=== PATIENT | female | born 1965 | race Hispanic/Latino ===

== ENCOUNTER 2018-07-24 09:53 | Inpatient (IN) | payer SELFPAY ==
[~2018-07-24] VITALS: Ht 152.4 cm; Wt 86.6 kg
[2018-07-24] MEDS ORDERED: METFORMIN500 MG PO (10:03)
--- NOTE | 2018-07-24 10:05 | NUR ---
PT TO ROOM FOR EXAM. PT STATES SHE HAS NOT TAKEN ANY OF HER METFORMIN FOR OVER A WEEK, AND DOES NOT USE INSULIN ON REGULAR BASIS. PT CAN NOT TELL ME WHAT KIND OF INSULIN SHE USES.
[2018-07-24] MEDS ORDERED: LANTUS100 UNIT/M SC (10:18)
--- NOTE | 2018-07-24 10:18 | NUR ---
DURING EXAMINATION WITH DR. BETHEA, NOTICEABLE REDNESS AND SWELLING TO OUTER VAGINAL AREA WITH PAIN WITH PALPITATION. VERY STRONG ODOR AND DISCHARGE. PT ALSO STATES HAS LEFT SIDE FLANK PAIN ON PALPATING. PT APPEARS TO BE NON COMPLIANT WITH DIABETIC MEDICATIONS, DOES NOT DO ACCUCHECKS.
--- NOTE | 2018-07-24 10:20 | NUR ---
STATES SHE HAS REMEMBERED THAT SHE TAKES LANTUS 60 UNITS TWICE A DAY, MEDICATION RECONCILLATION UPDATED.
[2018-07-24 10:52] LABS: HEMATOCRIT 44.6 % (37.0-47.0); HEMOGLOBIN 15.5 g/dl (12.0-16.0); IMMATURE GRANULOCYTES 0.5 % (0.0-5.0); MEAN CELL VOLUME 85.9 fL CALC (80.0-100.0); MEAN CORPUSCULAR HGB 29.9 pG CALC (26.0-32.0); MEAN CORPUSCULAR HGB CONC 34.8 g/L CALC (32.0-36.0); NEUT# 8.53 thou/uL (2.00-7.15); RED BLOOD COUNT 5.19 mill/uL (4.20-5.60); RED CELL DISTRI WIDTH 12.3 % (11.5-15.5)
[2018-07-24 10:53] LABS: URINE BILIRUBIN - DIPSTICK NEGATIVE (NEGATIVE); URINE BLOOD DIPSTICK MODERATE (NEGATIVE); URINE COLOR YELLOW; URINE GLUCOSE - DIPSTICK >=1000 mg/dL (NEGATIVE); URINE KETONE 40 mg/dL (NEGATIVE); URINE LEUK ESTERASE TRACE (NEGATIVE); URINE NITRITE - DIPSTICK NEGATIVE (Negative); URINE PROTEIN - DIPSTICK 30 mg/dL (NEG-TRACE); URINE SPECIFIC GRAVITY 1.025
[2018-07-24 11:00] LABS: URINE SQUAMOUS EPITHELIAL CELL FEW EPI/hpf (0-FEW); URINE WBC 50-100 WBC/hpf (0-5)
[2018-07-24 11:03] LABS: ALBUMIN 4.7 g/dL (3.2-5.0); ALKALINE PHOSPHATASE 136 u/l (38-126); ANION GAP 15 (6-22 (CALC)); BILIRUBIN, TOTAL 1.6 mg/dL (0.0-1.4); BUN 13 mg/dL (7-17); BUN/CREATININE RATIO 24 (12-20 (CALC)); CARBON DIOXIDE 24 mmol/l (22-30); CHLORIDE 100 mmol/l (95-108); CREATININE 0.5 mg/dL (0.5-1.0); GFR > 60 ML/MIN (>=60 (CALC)); GFR FOR AFR.AMER. > 60 ML/MIN (>=60 (CALC)); LIPASE 55 u/l (23-300); POTASSIUM 3.7 mmol/l (3.5-5.1); SGOT/AST 22 u/l (14-36); SODIUM 135 mmol/l (137-146); TOTAL PROTEIN 8.1 g/dL (6.3-8.2)
--- NOTE | 2018-07-24 11:25 | NUR ---
UNABLE TO USE SPECULUM IN VAGINAL AREA, DR. BETHEA NOTED TO SWOLLEN AND PAINFUL, OBTAINED ORDERED CULTURES, AND MANUAL EXAM PER DR. BETHEA. PT TOLERATED WELL
--- NOTE | 2018-07-24 13:30 | NUR ---
RECEIVED REPORT ON PT. BEDRESTING. AWAITING ADMISSION. N/C AT THIS TIME
--- NOTE | 2018-07-24 14:30 | NUR ---
CALLED TO GIVE REPORT. NURSE TO CALL BACK
--- NOTE | 2018-07-24 14:45 | NUR ---
AMBULATED TO AND FROM BATHROOM. GAIT STEADY.
--- NOTE | 2018-07-24 15:01 | NUR ---
REPORT GIVEN TO NAFISA SIM
[2018-07-24 15:10] VITALS: BP 111/69
--- NOTE | 2018-07-24 15:11 | NUR ---
TO MS VIA W/C
--- NOTE | 2018-07-24 15:30 | NUR ---
PT ARRIVED FLOOR VIA W/C ACCOMPANIED BY ER STAFF; AMBULATE WITH STEADY GAIT TO DIGITAL STANDING SCALE; VITALS OBTAIN; A/O X3: ORIENT TO ROOM AND CALL CLEARY SYSTEM; PT REQUEST SITTING UP IN RECLINER; BSC NEXT TO RECLINER; PT C/O OF BURINING WHEN URINATING AND SITTING DOWN; STATED BURNING STARTED 4 DAYS AGO; WORKS IN A [employer], SORTING CUCUMBERS AND PEPPERS; LAST BM 07/21/18; TWO IV SITE #22G LH, (DISLODGED) REMOVED, CATH INTACT; #20G RAC, NS INFUSING @100CC/HR; SITE APPEARS HEALTHY; VOICE NO CONCERNS; WILL CONTINUE TO MONITOR.
--- NOTE | 2018-07-24 17:10 | NUR ---
TEMP 100.9, MCKENZIE COFFEY AWARE, MEDICATED WITH TYLENOL; ASSISTED BACK TO BED; RESP EVEN AND UNLABORED ON ROOM AIR; IVF INFUSING WITHOUT DIFFICULTY; SITE APPEARS HEALTHY; CALL CLEARY AND BSC IN REACH. WILL CONTINUE TO MONITOR.
--- NOTE | 2018-07-24 18:03 | NUR ---
PT SITTING UP IN BED EATING SUPPER; TEMP 101.5 COLD WASH CLOTH APPLIED TO UNDERARMS; VOICE NO CONCERNS; CALL CLEARY IN REACH.
[2018-07-24 19:56] VITALS: BP 115/67
[2018-07-25 04:45] VITALS: BP 104/58
[2018-07-25 05:51] LABS: CHOLESTEROL HDL RATIO 3.9 (<4.4 (CALC))
--- NOTE | 2018-07-25 07:00 | NUR ---
RECIEVED REPORT FROM HOSPICE CASE MANAGER, ASSUMED PT CARE.
[2018-07-25 07:30] VITALS: BP 94/63
[2018-07-25 07:30] LABS: MEAN CORPUSCULAR HGB 29.6 pG CALC (26.0-32.0); MEAN CORPUSCULAR HGB CONC 33.6 g/L CALC (32.0-36.0); RED BLOOD COUNT 4.26 mill/uL (4.20-5.60); RED CELL DISTRI WIDTH 12.8 % (11.5-15.5)
--- NOTE | 2018-07-25 07:30 | NUR ---
ASSESSMENT COMPLETED, PT AFEBRILE AT THIS TIME. PT CONTINUES TO REPORT DISCOMFORT WITH URINATION, MEDICATED ORDERED. CALL LIGHT IN REACH. WILL MONITOR.
[2018-07-25 07:32] LABS: HEMATOCRIT 37.5 % (37.0-47.0); HEMOGLOBIN 12.6 g/dl (12.0-16.0)
[2018-07-25 07:37] LABS: ANION GAP 10 (6-22 (CALC)); BUN 10 mg/dL (7-17); BUN/CREATININE RATIO 23 (12-20 (CALC)); CARBON DIOXIDE 26 mmol/l (22-30); CHLORIDE 108 mmol/l (95-108); CREATININE 0.4 mg/dL (0.5-1.0); GFR > 60 ML/MIN (>=60 (CALC)); GFR FOR AFR.AMER. > 60 ML/MIN (>=60 (CALC)); POTASSIUM 3.7 mmol/l (3.5-5.1); SODIUM 140 mmol/l (137-146)
--- NOTE | 2018-07-25 10:18 | NUR ---
RECIEVED REPORT FROM SMALL ORDER CUTTER, ASSUMED PT CARE.
--- NOTE | 2018-07-25 11:30 | NUR ---
DIETARY ON UNIT, LUNCH TRAY SET UP.
--- NOTE | 2018-07-25 12:32 | NUR ---
PT ASSISTED TO SHOWER, TOLERATED WELL. REMAINS AFEBRILE. CALL LIGHT IN REACH. WILL MONITOR.
[2018-07-25 15:54] VITALS: BP 94/68
--- NOTE | 2018-07-25 16:15 | NUR ---
PT RESTING IN BED WATCHING TV. AFEBRILE. PT CONTINUES TO REPORT DISCOMFORT WITH URINATION. REMAINS NPO AT THIS TIME. CALL LIGHT IN REACH. WILL MONITOR.
--- NOTE | 2018-07-25 19:00 | NUR ---
RECEIVED REPORT FROM NURSE RODRIGUEZ, PATIENT AWAKE RESTING IN BED, WITH EVEN UNLABORED BREATHING CALL LIGHT AT REACH.
[2018-07-25 19:23] VITALS: BP 104/66
--- NOTE | 2018-07-25 20:00 | NUR ---
PATIENT ALERT AND ORIENTED ABLE TO MAKE NEEDS KNOWN, CONTINENT OF BOWEL AND BLADDER, WITH AN ONGOING IV OF NORMAL SALINE @100CC/HR INFUSING WELL ON RAC, LAST BM 07/24, C/O PAIN AND BURNING DURING URINATION, URINE COLOR ORANGE PATIENT WAS ON PYRIDIUM, ON NPO FOR THE ABDOMINAL ULTASOUND IN AM, C/O OF PAIN PRN LORTAB GIVEN WITH SIPS OF WATER. WILL REEVALUATE.
--- NOTE | 2018-07-25 21:00 | NUR ---
PATIENT STATED RELIEF FROM PAIN, CURRENTLY RESTING IN BED, CALL LIGHT AT REACH.
--- NOTE | 2018-07-25 21:15 | NUR ---
DR. ARGUETA INFORMED OF BS 111MG/DL, AND INFORMED ABOUT PATIENT BEING ON NPO FOR THE ULTRASOUND, ORDERED TO HOLD DUE ROSA VELASQUEZ.
--- NOTE | 2018-07-26 02:04 | NUR ---
PATIENT APPEARS TO BE SLEEPING IN BED, EYES CLOSED CALL LIGHT AT REACH.
--- NOTE | 2018-07-26 04:26 | NUR ---
PATIENTS TEMP 100.1, APPLIED COLD PACK AND WASH CLOTH TO FOREHEAD
[2018-07-26 04:46] VITALS: BP 112/79
[2018-07-26 05:33] LABS: HEMATOCRIT 35.5 % (37.0-47.0); HEMOGLOBIN 11.8 g/dl (12.0-16.0); IMMATURE GRANULOCYTES 0.5 % (0.0-5.0); MEAN CELL VOLUME 88.8 fL CALC (80.0-100.0); MEAN CORPUSCULAR HGB 29.5 pG CALC (26.0-32.0); MEAN CORPUSCULAR HGB CONC 33.2 g/L CALC (32.0-36.0); NEUT# 3.47 thou/uL (2.00-7.15)
--- NOTE | 2018-07-26 05:55 | NUR ---
REPEAT TEMP 99.9F CONTINUE TO DO APPLY WASH CLOTH TO FOREHEAD AND COLD PACKS. NPO STATUS REINFORCED
[2018-07-26 06:04] LABS: BUN 9 mg/dL (7-17); BUN/CREATININE RATIO 24 (12-20 (CALC)); CARBON DIOXIDE 24 mmol/l (22-30); CHLORIDE 109 mmol/l (95-108); CREATININE 0.4 mg/dL (0.5-1.0); GFR > 60 ML/MIN (>=60 (CALC)); GFR FOR AFR.AMER. > 60 ML/MIN (>=60 (CALC)); MAGNESIUM 1.9 mg/dL (1.6-2.3); SODIUM 138 mmol/l (137-146)
[2018-07-26 06:07] LABS: ANION GAP 9 (6-22 (CALC)); POTASSIUM 3.6 mmol/l (3.5-5.1)
[2018-07-26 07:50] VITALS: BP 119/72
--- NOTE | 2018-07-26 08:40 | NUR ---
MEDICATED PT WITH TYLENOL FOR TEMP 101.1. MADE ROOM COOL. ASSESSMENT DONE. PT IS A&O X3. IVF INFUSING WELL. ASSISTED PT TO SIT IN RECLINER. SAFETY PRECAUTIONS REINFROCED AND CALL LIGHT IN REACH.
--- NOTE | 2018-07-26 11:41 | NUR ---
PT IS SITTING IN RECLINER. MEDICATED PT WITH LORTAB FOR PAIN SEE EMAR. PT DENIES ANY OTHER NEEDS. CALL LIGHT IN REACH.
[2018-07-26 12:00] VITALS: BP 98/56
[2018-07-26 16:06] VITALS: BP 121/77
--- NOTE | 2018-07-26 16:35 | NUR ---
BIRDIE CARE DONE. VAGINAL LESIONS NOTED WITH REDNESS AND MD AWARE . COLE WAS PLACE BY BETZAIDA MANRIQUEZ. CALL LIGHT IN REACH.
--- NOTE | 2018-07-26 19:00 | NUR ---
RECEIVED REPORT FROM NURSE ALEXI, PATIENT RESTING IN BED, WITH COLE CATHETER DRAINING FRANCY COLORED URINE. STILL COMPLAINING OF BURNING PAIN ON PERINEAL AREA. WILL MEDICATE.
[2018-07-26 20:18] VITALS: BP 113/68
--- NOTE | 2018-07-26 21:00 | NUR ---
PATIENT SITTING IN BED, WITH AN ONGOING IV OF NORMAL SALINE@ 100CC/HR, INFUSING WELL ON RAC, LAST BM 07/24, WITH COLE CATHETER DRAINING FRANCY COLORED URINE, EVEN UNLABORED BREATHING, PRN LORTAB GIVEN FOR BURNING ON PERINEAL AREA.
--- NOTE | 2018-07-26 22:00 | NUR ---
PERINEAL CARE DONE USING CHLORHEXIDINE SOAP.
--- NOTE | 2018-07-27 | NUR ---
PATIENT RESTING IN BED, EVEN UNLABORED BREATHING CALL LIGHT AT REACH.
--- NOTE | 2018-07-27 04:30 | NUR ---
PATIENT APPEARS TO BE RESTING IN BED WITH EYES CLOSED, NO DISCOMFORTS NOTED AT THIS TIME, CALL LIGHT AT REACH.
[2018-07-27 04:37] VITALS: BP 108/62
[2018-07-27 06:06] LABS: HEMOGLOBIN 11.8 g/dl (12.0-16.0); IMMATURE GRANULOCYTES 0.5 % (0.0-5.0); MEAN CELL VOLUME 88.2 fL CALC (80.0-100.0); MEAN CORPUSCULAR HGB 29.7 pG CALC (26.0-32.0); MEAN CORPUSCULAR HGB CONC 33.7 g/L CALC (32.0-36.0); NEUT# 2.16 thou/uL (2.00-7.15); RED BLOOD COUNT 3.97 mill/uL (4.20-5.60); RED CELL DISTRI WIDTH 12.8 % (11.5-15.5)
[2018-07-27 06:32] LABS: ALKALINE PHOSPHATASE 119 u/l (38-126); ANION GAP 9 (6-22 (CALC)); BUN 7 mg/dL (7-17); BUN/CREATININE RATIO 19 (12-20 (CALC)); CARBON DIOXIDE 25 mmol/l (22-30); CHLORIDE 108 mmol/l (95-108); CREATININE 0.4 mg/dL (0.5-1.0); GFR > 60 ML/MIN (>=60 (CALC)); GFR FOR AFR.AMER. > 60 ML/MIN (>=60 (CALC)); LIPASE 56 u/l (23-300); POTASSIUM 3.5 mmol/l (3.5-5.1); SGOT/AST 22 u/l (14-36); SODIUM 138 mmol/l (137-146)
[2018-07-27 06:33] LABS: ALBUMIN 2.8 g/dL (3.2-5.0); AMYLASE < 30 u/l (30-110); BILIRUBIN, TOTAL 0.6 mg/dL (0.0-1.4); TOTAL PROTEIN 5.4 g/dL (6.3-8.2)
[2018-07-27 08:46] VITALS: BP 109/64
--- NOTE | 2018-07-27 08:47 | NUR ---
PT IS SITTING IN RECLINER ASSESSMENT DONE. MEDICATED PT WITH LORTAB FOR PAIN 10/23 SEE EMAR. RESPS EVEN AND UNLABORED. IVF INFUSING WELL. COLE IS PATENT WITH FRANCY URINE. PT DENIES ANY OTHER NEEDS AT THIS TIME. CALL LIGHT IN REACH.
--- NOTE | 2018-07-27 10:40 | NUR ---
PT TAKING A SHOWER AND CHLORHEXEDINE SOAP SET UP FOR PT TO DO BIRDIE CARE. CALL LIGHT IN REACH.
--- NOTE | 2018-07-27 11:35 | NUR ---
PT EPHRAIM AT BED TO ASSESS PT. PT STATED PAIN IS LESS. CALL LIGHT IN REACH.
--- NOTE | 2018-07-27 12:00 | NUR ---
CALLED DR. CANTRELL OFFICE. ALANA LEÓN TOLD HER THAT DR. YE WANTS TO COME SEE PT. ALANA STATED THAT HE ONLY COMES MON. AND MARISELA. . THAT SHE WILL NOTIFY DOCTOR RE: COMING IN MARISELA.
--- NOTE | 2018-07-27 14:39 | NUR ---
I SPOKE WITH KUSH FROM OFFICE @2018 AND SHE VERIFIED THE CONSULTATION FOR URINE RETENTION.
[2018-07-27 15:50] VITALS: BP 115/75
--- NOTE | 2018-07-27 15:51 | NUR ---
MEDICATED PT WITH LORTAB FOR VAGINAL PAIN SEE EMAR. BIRDIE CARE DONE PER MD ORDER. PT DENIES ANY OTHER NEEDS AT THIS TIME. CALL LIGHT IN REACH.
--- NOTE | 2018-07-27 20:02 | NUR ---
PT. SITTING UP IN RECLINER WITH NO DISTRESS NOTED; DENIES NEEDS/PAIN. IV SITE PATENT AND INFUSING ORDERED IVF WELL. UPDATED ON POC AND VERBALIZES UNDERSTANDING. ASSESSMENT COMPLETED; COLE CATHETER INTACT AND WHITE DISCHARGE NOTED TO VIAGINAL AREA; PT. IS INSTRUCTED TO CALL WHEN READY FOR BED SO THAT THIS ORNAMENTAL METAL FABRICATOR APPRENTICE CAN ASSIST WITH BIRDIE WASH AND PT. IS ENCOURAGED TO ASSIST WITH CARE AND VERBALIZED UNDESTANDING. ENCOURAGED TO CALL FOR ANY NEEDS. CALL LIGHT IS IN REACH.
[2018-07-27 20:09] VITALS: BP 117/70
--- NOTE | 2018-07-27 20:26 | NUR ---
PT. ASSISTED TO THE BATHROOM AND STUDENT ASSISTED WITH PT'S BIRDIE CARE PER ORDERA AND CREAM APPLIED PER ORDER FOR PAIN. PT. ASSISTED BACK INTO BED.
--- NOTE | 2018-07-27 21:37 | NUR ---
SCHED MEDS GIVEN ALONG WITH PRN LORTAB PER ORDER FOR BIRDIE-LICHA PAIN 12/23; WILL REASSESS.
--- NOTE | 2018-07-28 | NUR ---
PT. ASSISTED TO REPOSITION ONTO RIGHT SIDE; DENIES FURTHER NEEDS; CALL LIGHT IS IN REACH. WILL CONTINUE TO MONITOR.
--- NOTE | 2018-07-28 02:00 | NUR ---
PT. RESTING IN BED WITH NO DISTRESS NOTED; RESP EVEN AND UNLABORED. CALL LIGHT IS IN REACH.
[2018-07-28 03:49] VITALS: BP 105/65
--- NOTE | 2018-07-28 03:55 | NUR ---
PT. C/O PERINEAL PAIN 12/23 AND MEDICATED WITH ORDERED LORTAB ALSO REQUESTS PRN MOM AND PROVIDED PER ORDER; WILL REASSESS; VSS; CATHETER EMPTIED OF 1000MLS OF CLEAR YELLOW URINE. ENCOURAGED TO CALL FOR ANY NEEDS. CALL LIGHT IS IN REACH.
[2018-07-28 05:55] LABS: HEMATOCRIT 34.3 % (37.0-47.0); HEMOGLOBIN 11.4 g/dl (12.0-16.0); IMMATURE GRANULOCYTES 0.7 % (0.0-5.0); MEAN CELL VOLUME 88.9 fL CALC (80.0-100.0); MEAN CORPUSCULAR HGB 29.5 pG CALC (26.0-32.0); MEAN CORPUSCULAR HGB CONC 33.2 g/L CALC (32.0-36.0); PLATELET COUNT 176 thou/uL (130-400); RED BLOOD COUNT 3.86 mill/uL (4.20-5.60); RED CELL DISTRI WIDTH 12.8 % (11.5-15.5)
[2018-07-28 06:20] LABS: ALBUMIN 3.1 g/dL (3.2-5.0); ALKALINE PHOSPHATASE 131 u/l (38-126); ANION GAP 9 (6-22 (CALC)); BILIRUBIN, TOTAL 0.5 mg/dL (0.0-1.4); BUN 8 mg/dL (7-17); BUN/CREATININE RATIO 19 (12-20 (CALC)); CARBON DIOXIDE 28 mmol/l (22-30); CHLORIDE 107 mmol/l (95-108); CREATININE 0.4 mg/dL (0.5-1.0); GFR > 60 ML/MIN (>=60 (CALC)); GFR FOR AFR.AMER. > 60 ML/MIN (>=60 (CALC)); POTASSIUM 3.3 mmol/l (3.5-5.1); SGOT/AST 22 u/l (14-36); SODIUM 141 mmol/l (137-146); TOTAL PROTEIN 5.7 g/dL (6.3-8.2)
[2018-07-28 06:40] LABS: MANUAL DIFFERENTIAL YES
[2018-07-28 06:43] LABS: OTHER CELL TYPE 5; PLATELET ESTIMATE NORMAL
[2018-07-28 07:32] VITALS: BP 112/67
--- NOTE | 2018-07-28 08:48 | NUR ---
PT IS SITTING IN THE RECLINER. ASSESSMENT DONE. PT IS A&O X3. MEDICATED PT WITH LORTAB FOR PAIN SEE EMAR. IVF INFUING WELL. KELSEY IS PATENT WITH YELLOW URINE. PT DENIES ANY OTHER NEEDS AT THIS TIME. CALL LIGHT IN REACH.
--- NOTE | 2018-07-28 13:50 | NUR ---
PT TOOK A SHOWER AND BIRDIE CARE WAS DONE PER ORDER WITH SOAP.
[2018-07-28 16:00] VITALS: BP 128/77
--- NOTE | 2018-07-28 17:30 | NUR ---
COLE REMOVED AND PT TOLERATED WELL. SETUP PT TO DO BIRDIE CARE. CALL LIGHT IN REACH.
[2018-07-28 19:16] VITALS: BP 111/65
--- NOTE | 2018-07-28 20:13 | NUR ---
PT. IS SITTING UP IN RECLINER WITH NO DISTRESS NOTED. ASSESSMENT COMPLETED; IV SITE PATENT AND SL AND FLUSHED WITH NS, WITH NO REDNESS OR SWELLING NOTED TO SITE. UPDATED ON POC. PT. DID VOID 200MLS OF URINE AFTER COLE CATHETER WAS REMOVED; WILL CONTINUE TO MONITOR. PT. IS ASSISTED TO THE BATHROOM BY STUDENT NURSE AND ASSISTED WITH BIRDIE CARE PER ORDER. PT. DENIES FURTHER NEEDS. CALL LIGHT IS IN REACH.
--- NOTE | 2018-07-28 23:32 | NUR ---
PT. RESTING IN BED WITH EYES OPEN AND DENIES NEEDS.VOICES NO CONCERNS. CALL LIGHT IS IN REACH. WILL CONTINUE TO MONITOR.
--- NOTE | 2018-07-29 02:59 | NUR ---
PT. RESTING IN BED WITH EYES CLOSED; RESP EVEN AND UNLABORED. CALL LIGHT IS IN REACH. WILL CONTINUE TO MONITOR.
[2018-07-29 04:10] VITALS: BP 132/70
--- NOTE | 2018-07-29 05:08 | NUR ---
PT. VOIDED 225MLS OF DARK YELLOW URINE AND SCANT AMOUNT OF BLEEDING NOTED. BLADDER SCANNED AND IT IS READING 781 MLS UNABLE TO PRINT OUT R/T LOW BATTERY ON MACHINE. PT. REPORTS THAT EVEN IF THIS HOP WEIGHER GETS A COLE CATHETER ORDER SHE WILL NOT ALLOW US TO PLACE IT. PT. REPORTS SHE WILL TRY AGAIN WITHIN THE HOUR TO VOID AGAIN. CRANBERRY JUICE PROVIDED AND PYRIDIUM; WILL CONTINUE TO MONITOR.
[2018-07-29 08:33] VITALS: BP 119/81
--- NOTE | 2018-07-29 08:40 | NUR ---
PT SITING UP IN RECLINER WITH LEGS ELEAVTED, VOIDED 300CC URINE, SCAN AMT OF BLEEDING NOTED; ASSESSMENT COMPLETED; A/O X3; IV FLUSHED WELL, SITE APPEARS HEALTHY. GENITAL BUMPS/LESIONS NOTED, PT C/O OF SORENESS; CALL LIGHT IN REACH; SAFETY PRECAUTION REINFORCE; AM MEDS ADMINISTERED; WILL CONTINUE TO MONITOR.
--- NOTE | 2018-07-29 10:30 | NUR ---
PT BLADDER SCAN READING 900, PT VOIDED 400 RIGHT AFTER BLADDER SCAN'S DONE, RESCAN BLADDER NOW READING AT 725, UNABLE TO PRINT OUT READING DUE TO LOW BATTERY. PT'S REFUSING COLE. DR YE AWARE.
--- NOTE | 2018-07-29 11:34 | NUR ---
PT SITTING UP IN CHAIR EATING LUNCH; AMBULATED THE HALLS EARLIER WITH GREEN CHAIN WORKER; MEDICATED PER EMAR; VOICE NO CONCERNS; CALL CLEARY IN REACH.
--- NOTE | 2018-07-29 12:50 | NUR ---
PT SITTING UP IN RECLINER, BACK IN BED TO DO BLADDER SCAN, READING 950ML, VOIDED RIGHT AFTER SCAN 550ML, RESCAN BLADDER, NEW READING 625ML, MD AWARE.
[2018-07-29] MEDS ORDERED: ATORVASTATIN CA10 MG PO (12:56)
[2018-07-29] MEDS ORDERED: KEFLEX500 MG PO (12:57)
[2018-07-29] MEDS ORDERED: LANTUS100 UNIT/M SC (12:58)
[2018-07-29] MEDS ORDERED: METFORMIN1000 MG PO (13:00)
[2018-07-29] MEDS ORDERED: LOTRIMIN AF FOR H1 % VA (13:01)
--- NOTE | 2018-07-29 14:35 | NUR ---
PT TAKING A SHOWER, CHLORHEXIDINE GIVEN TO PT FOR BIRDIE CARE, VERBALIZE UNDERSTANDING; PT ADVISE TO PULL RED CORD WHEN WHEN DONE.
--- NOTE | 2018-07-29 15:32 | NUR ---
PT IS WAITING ON [employer] TO BRING MEDICATIONS. RECEIVED REPORT FROM RONEY TONGUE BINDER
[2018-07-29 16:00] VITALS: BP 120/76
--- NOTE | 2018-07-29 17:30 | NUR ---
IV SITE DISCONTINUED CATHETER INTACT. NO REDNESS OR EDEMA.
--- NOTE | 2018-07-29 18:17 | NUR ---
MEDICATIONS AND DISCHARGE INSTRUCTIONS GIVEN TO PT. WAITING FOR HER RIDE TO COME.CONTINUE TO OSBERVE AND MONITOR.
--- NOTE | 2018-07-29 19:04 | NUR ---
PT LEFT WITH FAMILY MEMBER ALL PAPERS WITH HER; Discharge instructions given. Patient verbalizes understanding of same. Discharged in stable condition via Wheelchair to Home with family. All belongings sent with pt.
== END 2018-07-29 18:55 | disposition home or self-care (01) | DRG 690 ==
LOC: ED 09:53 → ED-I 10:11 → ED 14:08 → MS2 14:09
PROVIDERS: Family Medicine; Nurse Practitioner Family; ADMIT Internal Medicine; ATTEND Internal Medicine Nephrology
PROC: 0T9B70Z Drainage of Bladder with Drainage Device, Via Natural or Artificial Opening (ICD-10-PCS; principal; 2018-07-26)
DX: N12 Tubulo-interstitial nephritis, not specified as acute or chronic (principal); G90.3 Multi-system degeneration of the autonomic nervous system; B37.3 Candidiasis of vulva and vagina; E11.65 Type 2 diabetes mellitus with hyperglycemia; E11.43 Type 2 diabetes mellitus with diabetic autonomic (poly)neuropathy; R33.9 Retention of urine, unspecified; E78.5 Hyperlipidemia, unspecified; E66.9 Obesity, unspecified; B96.20 Unspecified Escherichia coli [E. coli] as the cause of diseases classified elsewhere; Z68.37 Body mass index [BMI] 37.0-37.9, adult; Z79.4 Long term (current) use of insulin; Z91.14 Patient's other noncompliance with medication regimen
CPT/HCPCS: J0692; J1650; Q9967

== ENCOUNTER 2018-11-18 19:24 | Emergency (ER) | payer SELFPAY ==
[~2018-11-18] VITALS: Ht 152.4 cm; Wt 80.0 kg
[~2018-11-18 19:24] MED LIST: ATORVASTATIN CA10 MG PO; KEFLEX500 MG PO; LANTUS100 UNIT/M SC; LOTRIMIN AF FOR H1 % VA; METFORMIN1000 MG PO; METFORMIN500 MG PO
[2018-11-18 23:00] VITALS: BP 134/80
[2018-11-18] MEDS ORDERED: METFORMIN1000 MG PO (23:15)
[2018-11-18] MEDS ORDERED: LANTUS100 UNIT/M SC (23:15)
== END 2018-11-18 23:05 | disposition home or self-care (01) | DRG 882 ==
LOC: ED 19:24
DX: F43.22 Adjustment disorder with anxiety (principal); T74.21XA Adult sexual abuse, confirmed, initial encounter; E11.9 Type 2 diabetes mellitus without complications; Y07.03 Male partner, perpetrator of maltreatment and neglect; Z79.4 Long term (current) use of insulin